=== PATIENT | male | born 1975 | race Caucasian/White ===

== ENCOUNTER 2023-04-03 12:58 | Emergency (ER) | payer MEDICAID, SELFPAY ==
[2023-04-03 12:59] VITALS: BP 147/104; PULSE 75; RESP 18; TEMP 35.8; O2SAT 100; BMI 23.3
--- NOTE | 2023-04-03 13:41 | RAD_ITS ---
STUDY: X-RAY - RIGHT HAND REASON FOR EXAM: Male, 47 years old. Injury ring, index, and poss infection ring f TECHNIQUE: 3 view(s) of the hand. COMPARISON: None. FINDINGS: Normal radiocarpal articulation. Normal distal radioulnar joint. Normal visualized carpal bones. Normal carpal articulations Normal carpometacarpal articulation of the thumb. Normal second through fifth carpometacarpal joints. Normal metacarpi. Normal metacarpophalangeal joint of the thumb. Normal interphalangeal joint of the thumb. Normal proximal and distal phalanges of the thumb. Normal metacarpophalangeal joints of the second through fifth fingers. Normal proximal and distal interphalangeal joints of the second through fifth fingers. Normal phalanges of the second through fifth fingers. Soft tissue swelling. RAD/Hand Min 3 Views IMPRESSION: Soft tissue swelling. Electronically Signed: Jose Alberto Givens MD at 14:03 EDT ,
--- NOTE | 2023-04-03 13:42 | EX.ED.UPPERE ---
HPI History of Present Illness Chief Complaint: Upper Extremity Injury Informant: patient Narrative Narrative: Patient had 2 separate injuries to fingers on his right hand, his ring finger he smashed while working on a car 3 weeks ago, and then the same thing happened to the index finger about 2 weeks ago. He has been able to move everything without difficulty until this morning, his ring finger is swollen and erythematous and painful without an additional injury. He states last night he noticed some small amount of fluid draining from what appeared to be a callus at the volar aspect of his ring finger, and that is worse today. He was seen at urgent care and sent here for unclear reason. He denies any systemic symptoms except for feeling poorly in the last day or 2 but no fevers or chills or other illness that he knows of. PFSH PFSH Medical History no medical history no medical history Home Medications cephalexin 500 mg capsule 500 mg PO Q6 #40 CAPSULES 04/03/23 [Rx Last Taken Unknown] hydrocodone-acetaminophen 5-325mg 5mg-325mg 1 tab PO Q4H PRN PRN Pain 2 days #10 TABLETS 04/03/23 [Rx Last Taken Unknown] Allergy/AdvReac Type Severity Reaction Status Date / Time No Known Allergies Allergy Verified 04/03/23 13:01 Family History no significant family his Surgical History no surgical history Social History Smoking Status: Smoker, status unknown ROS ROS ED Constitutional Constitutional ED: Denies chills or fever(s) Musculoskeletal Musculoskeletal: Reports extremity pain; Denies neck pain Integumentary Denies Abrasions, rash or wounds Neurologic Neurologic: Denies paresthesias or weakness EXAM Physical Exam Const Vital Signs: 04/03/23 12:59 Temperature 96.5 F L Temperature Source Temporal Pulse Rate 75 Respiratory Rate 18 Blood Pressure 147/104 H Blood Pressure Mean 118 Pulse Ox 100 Oxygen Delivery Method Room Air Positive well nourished and well developed General Appearance ED: well developed and NAD Neck full ROM and supple Back/Spine normal ROM and normal to inspection Extremity Extremity Narrative: Limited range of motion of the right ring finger due to pain and swelling but the tendons work. He has tenderness throughout the ring finger distal and middle phalanx ease, there is a scant amount of clear fluid at what appears to be a callus of skin at the volar aspect of the DIPJ, the erythema is more dorsally than it is there/ventrally, there is no lymphangitis, there is no tenderness in the flexor tendon distribution proximal to the MCP J, nor is there any pain or swelling/tenderness proximal to the ring finger and other fingers are not affected. They range fine. No epitrochlear lymphadenopathy palpable. Neuro oriented x3, no focal motor deficits and no sensory deficits noted Sensorium / Orientation: alert Psych mental status grossly normal and thought process normal Skin Skin Narrative: Small wound right ring finger see above Rashes: no rashes MDM MDM MDM Narrative Medical decision making narrative: Patient states he has been picking at this area because of the callus, and I think that is why it is infected not the injury that he had weeks ago. I did an x-ray, 3 views of the right hand my interpretation negative for any acute fracture or bony involvement, radiology read the x-ray and is in agreement. I think it is secondarily infected, but it seems localized to the ring finger at this time. See the procedure note, we did a quick bedside simple I&D to see if there was abscess deep to the callus, which was white making it difficult to rule this out on inspection, no purulent discharge was yielded by the procedure. He was given Ancef 1 g IM followed by a prescription for something for pain and antibiotics we discussed reasons to return he is comfortable with that plan. Procedures Other Procedures Procedure(s): Simple incision and drainage right ring finger: After informed consent, prepped and draped in sterile fashion with chlorhexidine, topical anesthesia for 30 minutes with LET, quickly superficially incised with a #11 blade, there is a small amount of blood and no purulent discharge, no complications tolerated well dressed with bacitracin. Discharge Plan Triage Chief Complaint: Upper Extremity Injury ED Provider: Gera Puri Dx/Rx/DC Orders Clinical Impression: Cellulitis of right ring finger Instructions: Cellulitis Dc Prescriptions: New hydrocodone-acetaminophen [hydrocodone-acetaminophen] 5-325 mg tablet 1 tab PO Q4H PRN PRN (Reason: Pain) 2 Days Qty: 10 0RF cephalexin [cephalexin] 500 mg capsule 500 mg PO Q6 Qty: 40 0RF Primary Care Provider: Care Physician,No Primary Referrals: [facility] Doctor,Out of [Non-Staff] - 3-5 Days if not improving Disposition Disposition: Home, Self Care
[2023-04-03] MEDS: Lidocaine/Epi/Tetracaine 50 ML 1 APPLIC TOPICAL (13:48)
[2023-04-03] MEDS: Cefazolin 1 GM/5 ML Vial IM (15:36)
== END 2023-04-03 16:09 | disposition home or self-care (01) ==
PROVIDERS: Emergency Provider Emergency Medicine; Visit Provider Emergency Medicine
DX: L03.011 Cellulitis of right finger (principal)
CPT/HCPCS: 73130; 96372; 99283